=== PATIENT | male | born 1940 | race Caucasian/White ===

== ENCOUNTER 2017-07-23 12:08 | Emergency (ER) | payer MEDICARE, BC, OTHER ==
[~2017-07-23] VITALS: Ht 162.6 cm; Wt 54.4 kg
[~2017-07-23 12:08] MED LIST: NAMZARIC PO
[2017-07-23] MEDS ORDERED: TRAMADOL HCL 50 MG TAB PO ONE (13:00)
--- NOTE | 2017-07-23 13:57 | Diagnostic Imaging Report ---
Left ankle x-ray - 3 views, foot x-ray, 3 views HISTORY: \S\pain \[id number] \S\1245 COMPARISON: None available. FINDINGS: Bones: No acute displaced fracture. Osseous alignment is within normal limits. Joints: The joint spaces are well-maintained. Calcaneal enteropathy. Soft tissues: The soft tissues appear unremarkable. IMPRESSION: No acute radiographic abnormality. Signed by: Dr. Irma Berger M.D. on 07/23/2017 1:54 PM
--- NOTE | 2017-07-23 13:57 | Diagnostic Imaging Report ---
Left ankle x-ray - 3 views, foot x-ray, 3 views HISTORY: \S\pain \[id number] \S\1245 COMPARISON: None available. FINDINGS: Bones: No acute displaced fracture. Osseous alignment is within normal limits. Joints: The joint spaces are well-maintained. Calcaneal enteropathy. Soft tissues: The soft tissues appear unremarkable. IMPRESSION: No acute radiographic abnormality. Signed by: Dr. Irma Berger M.D. on 07/23/2017 1:54 PM
== END 2017-07-23 14:10 | disposition home or self-care (01) ==
LOC: ER 12:08
DX: S93.612A Sprain of tarsal ligament of left foot, initial encounter (principal); S93.492A Sprain of other ligament of left ankle, initial encounter; X50.1XXA Overexertion from prolonged static or awkward postures, initial encounter; Y92.008 Other place in unspecified non-institutional (private) residence as the place of occurrence of the external cause
CPT/HCPCS: 99283

== ENCOUNTER 2019-02-13 17:24 | Inpatient (IN) | payer MEDICARE, BC, OTHER ==
[~2019-02-13] VITALS: Ht 162.6 cm; Wt 54.4 kg
--- OUTSIDE RECORDS SUMMARY | 2019-02-13 17:28 | XMS REPORT ---
Author Author [facility] Address Unknown Phone Unavailable Care Team Providers Care Ross Furnace Operator Name Role Phone Shilpa ADAMS Unavailable Unavailable Problems This patient has no known problems. Allergies, Adverse Reactions, Alerts This patient has no known allergies or adverse reactions. Medications This patient has no known medications. Results Test Description Test Time Test Comments Text Results Atomic Results Result Comments ANKLE 3+ VIEWS LEFT [place] [address] Patient Name: REILLY ARRIOLA JR MR #: [id number] : 1940 Age/Sex: 76/M Req #: [id number] Adm Physician: Ordered by: JARON ADAMS MD Report #: [id number] Location: ER Room/Bed: Procedure: [id number] DX/ANKLE 3+ VIEWS LEFT Exam Date: 07/23/17 Exam Time: 1245 REPORT STATUS: Signed Left ankle x-ray - 3 views, foot x-ray, 3 views HISTORY: COMPARISON: None available. FINDINGS: Bones: No acute displaced fracture. Osseous alignment is within normal limits. Joints: The joint spaces are well-maintained. Calcaneal enteropathy. Soft tissues: The soft tissues appear unremarkable. IMPRESSION: No acute radiographic abnormality. Signed by: Dr. Jenae Berger M.D. on 07/23/2017 1:54 PM Dictated By: JENAE BERGER MD 1354 Transcribed By: YOHANA on 07/23/17 1350 COPY TO: JARON ADAMS MD FOOT LEFT COMPLETE [place] [address] Patient Name: REILLY ARRIOLA JR MR #: [id number] : 1940 Age/Sex: 76/M Req #: [id number] Adm Physician: Ordered by: JARON ADAMS MD Report #: [id number] Location: ER Room/Bed: Procedure: [id number] DX/FOOT LEFT COMPLETE Exam Date: 07/23/17 Exam Time: 1245 REPORT STATUS: Signed Left ankle x-ray - 3 views, foot x-ray, 3 views HISTORY: COMPARISON: None available. FINDINGS: Bones: No acute displaced fracture. Osseous alignment is within normal limits. Joints: The joint spaces are well-maintained. Calcaneal enteropathy. Soft tissues: The soft tissues appear unremarkable. IMPRESSION: No acute radiographic abnormality. Signed by: Dr. Jenae Berger M.D. on 07/23/2017 1:54 PM Dictated By: JENAE BERGER MD 1352 Transcribed By: YOHANA on 07/23/17 1359 COPY TO: JARON ADAMS MD
[2019-02-13] MEDS ORDERED: NAMENDA10 MG PO (18:11)
[2019-02-13] MEDS ORDERED: ARICEPT5 MG PO (18:11)
[2019-02-13] MEDS ORDERED: SODIUM CHLORIDE 0.9% 1000ML 1,000 ML IV STA (18:20)
[2019-02-13] MEDS ORDERED: ACETAMINOPHEN 325 MG TAB PO ONE (18:30)
[2019-02-13] MEDS ORDERED: ACETAMINOPHEN 325 MG TAB ONE (19:00)
[2019-02-13 19:10] LABS: BASOPHILS % 0.2 % (0.0-1.0); HEMATOCRIT 45.1 % (38.2-49.6); HEMOGLOBIN 15.5 g/dL (14.0-18.0); LYMPHOCYTES # (AUTO) 0.4 (1.0-3.2); LYMPHOCYTES % 3.3 % (18.0-39.1); MEAN CORPUSCULAR HEMOGLOBIN 31.8 pg (28-32); MEAN CORPUSCULAR HGB CONC 34.4 g/dL (31-35); MEAN CORPUSCULAR VOLUME 92.6 fL (81-99); MONOCYTES % 8.5 % (4.4-11.3); NEUTROPHILS # (AUTO) 10.7 (2.1-6.9); NEUTROPHILS % 87.5 % (38.7-80.0); PLATELET COUNT 299 x10e3/uL (140-360); RED BLOOD COUNT 4.87 x10e6/uL (4.3-5.7); RED CELL DISTRIBUTION WIDTH 14.1 % (11.7-14.4)
[2019-02-13 19:14] LABS: BILIRUBIN,URINE SMALL (NEGATIVE); CLARITY,URINE SL CLOUDY (CLEAR); COLOR,URINE YELLOW (YELLOW); LEUKOCYTE ESTERASE ,URINE NEGATIVE (NEGATIVE); NITRITE,URINE NEGATIVE (NEGATIVE); PROTEIN,URINE DIPSTICK TRACE (NEGATIVE); URINE UROBILINOGEN 2 mg/dL (0.2 - 1)
[2019-02-13 19:16] LABS: KETONES,URINE 1+ (NEGATIVE)
[2019-02-13 19:17] LABS: INR 0.93; PARTIAL THROMBOPLASTIN TIME 26.4 seconds (23.8-35.5)
[2019-02-13 19:27] LABS: BACTERIA,URINE FEW /HPF; EPITHELIAL CELLS,URINE FEW /LPF; RBC,URINE 0-5 /HPF (0-5); WBC,URINE (MAN) 0-5 /HPF (0-5)
[2019-02-13 19:28] LABS: ALANINE AMINOTRANSFERASE 8 IU/L (0-55); ALBUMIN 3.8 g/dL (3.5-5.0); ALKALINE PHOSPHATASE 113 IU/L (40-150); ANION GAP 11.7 mmol/L (8-16); BLOOD UREA NITROGEN 17 mg/dL (7-26); BUN/CREATININE RATIO 20 (6-25); CALCIUM 9.4 mg/dL (8.4-10.2); CARBON DIOXIDE 27 mmol/L (22-29); CHLORIDE 102 mmol/L (98-107); CREATINE KINASE 39 IU/L (30-200); CREATININE, SERUM 0.86 mg/dL (0.72-1.25); EST GLOMERULAR FILTRATION RATE > 60 ML/MIN (60-); GLUCOSE 135 mg/dL (74-118); LIPASE 6 U/L (8-78); POTASSIUM 3.7 mmol/L (3.5-5.1); SODIUM 137 mmol/L (136-145)
[2019-02-13 19:30] LABS: STREPTOCOCCUS GRP A ANTIGEN NEGATIVE (NEGATIVE)
[2019-02-13 19:31] LABS: INFLUENZAE A&B ANTIGEN (RAPID) NEGATIVE (NEGATIVE)
[2019-02-13] MEDS ORDERED: CEFEPIME 2 GM/NS 0.9% 100 ML 100 ML IV SCH (19:45)
[2019-02-13] MEDS ORDERED: CEFEPIME 2 GM/NS 0.9% 100 ML 100 ML IV ONE (19:49)
[2019-02-13] MEDS ORDERED: SODIUM CHLORIDE 0.9% 50ML 50 ML ONE (20:24)
[2019-02-13] MEDS ORDERED: IOPAMIDOL 370 MG/ML 200 ML INFUS..BTL INJ ONE (20:25)
--- NOTE | 2019-02-13 20:49 | Diagnostic Imaging Report ---
EXAMINATION: CHEST SINGLE (NOT PORTABLE) INDICATION: ^FEVER COUGH CP ^[id number] ^[id number] COMPARISON: Chest radiograph 07/01/2014 FINDINGS: AP view TUBES and LINES: None. LUNGS: Lungs are well inflated. Reticular opacities in both lung bases. There is no evidence of pneumonia or pulmonary edema. PLEURA: No pleural effusion or pneumothorax. HEART AND MEDIASTINUM: Curvilinear opacity in the right paraspinal region may reflect a tortuous ascending aorta. The cardiac silhouette is within normal limits. BONES AND SOFT TISSUES: No acute osseous lesion. Soft tissues are unremarkable. UPPER ABDOMEN: No free air under the diaphragm. IMPRESSION: Bilateral lower lobes and reticular opacity may reflect atelectasis or atypical pneumonia. Indeterminate right paraspinal opacity may reflect a tortuous thoracic aorta. Consider lateral view for further evaluation. Signed by: Dr. Irma Berger M.D. on 02/13/2019 8:45 PM
--- NOTE | 2019-02-13 21:25 | Diagnostic Imaging Report ---
History: Neck swelling, stiffness and fever. Evaluate for possible abscess. Comparison studies: None Technique: Axial, coronal and sagittal images from the skull base to the thoracic inlet. Coronal and sagittal images reconstructed from the axial data. Dose modulation, iterative reconstruction, and/or weight based adjustment of the mA/kV was utilized to reduce the radiation dose to as low as reasonably achievable. Intravenous contrast: 100 cc of Isovue 370. Findings: Soft tissues: No abnormalities. Lymph nodes: No radiographically significant adenopathy. Vessels: Arteries and veins are patent. Glands (thyroid, parotid and submandibular): 2 mm hypodense nodule in right lobe of thyroid gland. Otherwise, normal in size and symmetric. No masses. Orbits: No abnormalities. Paranasal sinuses: Complete opacification of bilateral maxillary sinuses with intrinsic curvilinear enhancement, near complete opacification of bilateral frontal sinuses and moderate mucosal thickening in bilateral anterior ethmoid sinuses. Temporal bones: No abnormalities. Skull base and facial bones: Intact. Cervical spine: Moderate degenerative changes in the anterior atlantodental joint. Multilevel moderate to severe degenerative disc disease particularly from C3 to C7. C2-C3: Posterior disc osteophyte complex results in mild canal stenosis. C3-C4: Moderate right and mild left foraminal stenosis due to uncovertebral arthrosis. C4-C5: Moderate bilateral foraminal stenosis due to uncovertebral arthrosis. C5-C6: Moderate right and mild left foraminal stenosis due to uncovertebral arthrosis. C6-C7: Posterior disc osteophyte complex results in mild canal stenosis. Moderate bilateral foraminal stenosis due to uncovertebral arthrosis. Incidental finding: Multiple missing teeth, multifocal dental caries and endodontal disease, the activity of which is to be determined clinically. IMPRESSION: 1. No acute soft tissue abscess or enhancing mass. 2. Moderate to severe paranasal sinus inflammatory changes as detailed above. 3. Moderate cervical spondylosis as above, particularly results in mild canal stenosis at C2-C3 and C6-C7. Multilevel foraminal stenosis, particularly moderate right and mild left at C3-C4, C5-C6, moderate bilateral at C4-C5 and C6-C7. Signed by: Dr. Jessica Murphy M.D. on 02/13/2019 9:21 PM
[2019-02-13] MEDS ORDERED: ONDANSETRON HCL INJ 2MG/ML 2ML 2 MG/ML VIAL IV PRN (22:00)
[2019-02-13] MEDS ORDERED: SODIUM CHLORIDE FLUSH 10 ML SYR INJ PRN (22:00)
[2019-02-13] MEDS: SODIUM CHLORIDE 0.9% 1000ML 1,000 ML IV SCH (22:54)
[2019-02-13 23:30] VITALS: BP 108/61
[2019-02-13] MEDS: AZITHROMYCIN 500MG/SOD CHL 0.9% 250ML BAG IV SCH (23:30)
[2019-02-14] VITALS (9 sets, daily range): BP systolic 95–116; BP diastolic 56–61
[2019-02-14 05:20] LABS: BASOPHILS % 0.2 % (0.0-1.0); EOSINOPHILS % 0.1 % (0.0-6.0); HEMOGLOBIN 13.3 g/dL (14.0-18.0); LYMPHOCYTES # (AUTO) 1.4 (1.0-3.2); LYMPHOCYTES % 11.6 % (18.0-39.1); MEAN CORPUSCULAR HEMOGLOBIN 31.6 pg (28-32); MEAN CORPUSCULAR HGB CONC 34.1 g/dL (31-35); MEAN CORPUSCULAR VOLUME 92.6 fL (81-99); MONOCYTES # (AUTO) 1.7 (0.2-0.8); MONOCYTES % 14.1 % (4.4-11.3); NEUTROPHILS # (AUTO) 9.1 (2.1-6.9); NEUTROPHILS % 73.6 % (38.7-80.0); PLATELET COUNT 232 x10e3/uL (140-360); RED BLOOD COUNT 4.21 x10e6/uL (4.3-5.7); RED CELL DISTRIBUTION WIDTH 14.4 % (11.7-14.4)
[2019-02-14] MEDS: SODIUM CHLORIDE 0.9% 1000ML 1,000 ML IV SCH ×3 (05:46→23:52)
[2019-02-14] MEDS: CEFEPIME 2 GM/NS 0.9% 100 ML 100 ML IV SCH ×3 (05:46→22:03)
[2019-02-14 05:53] LABS: CREATINE KINASE MB 0.9 ng/mL (0-5.0)
[2019-02-14 06:12] LABS: ALANINE AMINOTRANSFERASE 7 IU/L (0-55); ALBUMIN 2.9 g/dL (3.5-5.0); ALBUMIN/GLOBULIN RATIO 0.9 (0.8-2.0); ALKALINE PHOSPHATASE 89 IU/L (40-150); ANION GAP 11.4 mmol/L (8-16); BLOOD UREA NITROGEN 14 mg/dL (7-26); BUN/CREATININE RATIO 19 (6-25); CARBON DIOXIDE 20 mmol/L (22-29); CHLORIDE 110 mmol/L (98-107); CREATININE, SERUM 0.73 mg/dL (0.72-1.25); EST GLOMERULAR FILTRATION RATE > 60 ML/MIN (60-); GLUCOSE 108 mg/dL (74-118); POTASSIUM 3.4 mmol/L (3.5-5.1); SODIUM 138 mmol/L (136-145)
[2019-02-14 14:38] LABS: CREATINE KINASE MB 0.9 ng/mL (0-5.0)
--- NOTE | 2019-02-14 17:46 | Diagnostic Imaging Report ---
History: Neck pain. Comparison studies: None Technique: Sagittal T1, T2 and IR, axial T2 and axial gradient echo Intravenous contrast: None Findings: Motion artifact limits evaluation previous evaluation. Alignment: Normal lordosis. No scoliosis. Cervicomedullary junction: No abnormalities. Patent foramen magnum. Soft tissues: No T2 hyperintense inflammatory changes. Spinal cord: Normal in size and signal from the foramen magnum through T4 Vertebrae: Normal in height and signal intensity. No fractures, infection or neoplasm. Degenerative changes: C2-C3: Disc degeneration with loss of T2 signal. Small central disc osteophyte complex and left uncinate process hypertrophy resulting in mild left foraminal narrowing without significant canal stenosis. C3-C4: Disc degeneration with loss of T2 signal and obliterated intervertebral space. Bilateral uncinate process hypertrophy and facet hypertrophy results in no significant stenosis and moderate bilateral foraminal narrowing C4-C5: Disc degeneration with loss of T2 signal and obliterated intervertebral space. Diffuse disc osteophyte complex, uncinate process hypertrophy results in no significant canal stenosis, moderate right and severe left foraminal narrowing C5-C6: Disc degeneration with loss of T2 signal and obliterated intervertebral space. Diffuse disc osteophyte complex bilateral uncinate process and facet hypertrophy results in mild canal stenosis, severe right and moderate left foraminal. C6-C7: Disc degeneration with loss of T2 signal and obliterated intervertebral space. Diffuse disc osteophyte complex bilateral and ligamentum flavum thickening results in mild canal stenosis and moderate bilateral foraminal narrowing. C7-T1: Disc degeneration with loss of T2 signal. Patent canal and foramina IMPRESSION: 1. Multilevel degenerative foraminal narrowing, moderate bilateral at C3-4 and C6-7; moderate right and severe left at C4-5 ; severe right and moderate left at C5-6. 2. Other degenerative changes without significant (moderate or severe) canal stenosis. Signed by: DR Dashawn Rodríguez M.D. on 02/14/2019 5:42 PM
--- NOTE | 2019-02-14 20:15 | NUR ---
patient is in bed, severely forgetful, no distress noted at this time, and another fam member on bed side. vitals checked, will continue to monitor.
--- NOTE | 2019-02-14 22:38 | NUR ---
patient just pulled off the IV line to left AC, a new IV inserted to left Upper arm size 20 g.
[2019-02-14] MEDS: AZITHROMYCIN 500MG/SOD CHL 0.9% 250ML BAG IV SCH (22:47)
[2019-02-15] VITALS (7 sets, daily range): BP systolic 92–126; BP diastolic 55–80
[2019-02-15] MEDS: CEFEPIME 2 GM/NS 0.9% 100 ML 100 ML IV SCH ×3 (05:41→22:51)
[2019-02-15] MEDS: ACETAMINOPHEN 325 MG TAB PO PRN ×2 (06:11→22:52)
--- NOTE | 2019-02-15 07:00 | NUR ---
Pt received resting in bed with at bedside. Alert and oriented x2 but forgetful. Oriented to staff and surroundings. Encouraged to press call tavares if help needed. Emotional support given. Pt with left upper arm saline lock receiving IV fluid as ordered. Bed alarm on. Will monitor
[2019-02-15] MEDS: SODIUM CHLORIDE 0.9% 1000ML 1,000 ML IV SCH ×3 (08:38→22:52)
[2019-02-15] MEDS ORDERED: POTASSIUM CHLORIDE 10MEQ EA PO ONE (11:00)
--- NOTE | 2019-02-15 11:06 | NUR ---
Received order for LTAC eval and transfer on 02/16/19. Spoke to pt and at bedside. Dr. Gillespie spoke to pt and today regarding plan. They gave choice for [facility]. Signed choice letter placed in front of chart. Copy to pt's . Nery Garibay with [facility] was notified of referral. Referral was faxed to [phone].
--- NOTE | 2019-02-15 12:56 | Consultation ---
DATE OF CONSULTATION: 02/15/2019 REASON FOR CONSULTATION: Neck and chest pain. HISTORY OF PRESENT ILLNESS: The patient is a 78-year-old man with dementia, who was brought by his to the emergency room because he was having chest pain and she feared cardiac issues. Cardiac problems have been ruled out and apparently he has been diagnosed with pneumonia. He states that he has mild chronic neck pain. The pain does not radiate down the arms. He is able to ambulate without any difficulty and does not use a walker at home. PHYSICAL EXAMINATION: On exam, the patient is awake and alert, and follows commands readily. His speech is fluent. He has urrp-sm-iwksload dementia. Cranial nerves are intact. Motor strength is full and symmetric in the arms and legs, except that lifting the arms above the shoulder is limited due to intrinsic shoulder restriction and mild pain. Deep tendon reflexes are symmetric. Plantar responses are flexor. He is able to stand and walk on his own. IMAGING STUDIES: MRI of the cervical spine was reviewed. There is multilevel cervical disk degeneration consistent with his age at C3-4, C4-5, C5-6, and C6-7. There is bilateral foraminal stenosis at C5-6 and C6-7, but there is no cord compression. IMPRESSION: Chronic degenerative changes of the cervical spine with multilevel foraminal stenosis without cervical radiculopathy or myelopathy. He does not require surgical treatment. I will sign off. Fady Negrete MD PP/MARGARITO /[id number]
--- NOTE | 2019-02-15 19:07 | Consultation ---
DATE OF CONSULTATION: 02/15/2019 Hospital Consultation HISTORY OF PRESENT ILLNESS: I was kindly asked to see this 78-year-old man for evaluation of sinusitis. The patient has a history of sore throat, fever, and body aches of 2 days duration. Subsequent workup with CT scan showed pansinusitis. He also has had pain in his jaw and difficulty opening his mouth due to dental abnormalities. PAST MEDICAL HISTORY: Reviewed in detail in the chart. PAST SURGICAL HISTORY: Reviewed in detail in the chart. PHYSICAL EXAMINATION: On examination, there is excess cerumen in external auditory canals bilaterally with no acute pathology noted. The pinna and postauricular area are normal bilaterally. He has a moderate nasal septal deviation. Examination is limited due to poor patient cooperation. He has difficulty opening his mouth due to the degree of dental pain and is nonspecific about the etiology of the dental pain. On bedside fiberoptic diagnostic rhinoscopy, examination is limited due to poor patient cooperation, but no active infection was identified on examination. The patient and his were asked. ASSESSMENT: 1. Chronic pansinusitis with complete opacification of the maxillary sinuses and near complete opacification of the frontal sinuses with thickening within the ethmoid air cells. 2. No evidence of abscess formation of dental etiology. PLAN: 1. Afrin nasal spray 2 puffs each side of nose b.i.d. for 3 days. 2. [place] nasal spray 2 puffs each side of nose q.4 hours while awake. MD CLARE Alcantar/MARGARITO /[id number]
[2019-02-15] MEDS: OXYMETAZOLINE HCL 0.05% NAS 1 SPRAY BTL SCH (20:57)
--- NOTE | 2019-02-15 22:32 | NUR ---
called answering service of Dr Trace Gillespie, patient just had an episode of combative, trying to get an order, awaiting for a call back.
[2019-02-15] MEDS ORDERED: LORAZEPAM INJ 2 MG/ML VIAL IV PRN (22:45)
[2019-02-15] MEDS: SALINE 0.65% NAS SOLN 1 SPRAY BTL SCH (22:52)
[2019-02-15] MEDS: AZITHROMYCIN 500MG/SOD CHL 0.9% 250ML BAG IV SCH (23:33)
[2019-02-16 00:04] VITALS: BP 133/76
--- NOTE | 2019-02-16 02:16 | NUR ---
patient accidentally pulled off his IV line while trying to use the bathroom. new IV line inserted to left upper arm size 20 g.
[2019-02-16 03:54] VITALS: BP 116/76
[2019-02-16] MEDS: CEFEPIME 2 GM/NS 0.9% 100 ML 100 ML IV SCH ×2 (05:32→12:57)
[2019-02-16] MEDS: SODIUM CHLORIDE 0.9% 1000ML 1,000 ML IV SCH ×2 (05:58→12:57)
[2019-02-16] MEDS: SALINE 0.65% NAS SOLN 1 SPRAY BTL SCH ×3 (07:08→12:58)
[2019-02-16 08:00] VITALS: BP 117/72
--- NOTE | 2019-02-16 08:26 | NUR ---
Patient confused and keeps pulling off EKG leads and has been pulling out IV lines throughout the night, patient removed IV again , and had blood on gown, but states "he doesnt know he pulled IV out", patient redirected and verbalized understanding, at bedside. Will continue to monitor
--- NOTE | 2019-02-16 08:37 | NUR ---
Spoke to Nery Garibay with [facility] this morning. She is aware of referral. Informed her Dr. Gillespie plans to transfer today.
[2019-02-16] MEDS: OXYMETAZOLINE HCL 0.05% NAS 1 SPRAY BTL SCH (08:40)
[2019-02-16] MEDS ORDERED: HALOPERIDOL LACTATE 5 MG/ML VIAL IM PRN (08:45)
[2019-02-16] MEDS ORDERED: MEMANTINE 10 MG TAB PO SCH (09:00)
[2019-02-16 09:03] LABS: BASOPHILS % 0.5 % (0.0-1.0); EOSINOPHILS # (AUTO) 0.3 (0.0-0.4); EOSINOPHILS % 3.8 % (0.0-6.0); HEMATOCRIT 36.2 % (38.2-49.6); HEMOGLOBIN 12.2 g/dL (14.0-18.0); LYMPHOCYTES # (AUTO) 1.2 (1.0-3.2); LYMPHOCYTES % 18.3 % (18.0-39.1); MEAN CORPUSCULAR HEMOGLOBIN 31.3 pg (28-32); MEAN CORPUSCULAR HGB CONC 33.7 g/dL (31-35); MEAN CORPUSCULAR VOLUME 92.8 fL (81-99); MONOCYTES # (AUTO) 0.8 (0.2-0.8); MONOCYTES % 11.8 % (4.4-11.3); NEUTROPHILS # (AUTO) 4.3 (2.1-6.9); NEUTROPHILS % 65.4 % (38.7-80.0); PLATELET COUNT 232 x10e3/uL (140-360); RED CELL DISTRIBUTION WIDTH 14.1 % (11.7-14.4)
[2019-02-16 09:16] LABS: ANION GAP 13.3 mmol/L (8-16); BLOOD UREA NITROGEN 9 mg/dL (7-26); BUN/CREATININE RATIO 13 (6-25); CARBON DIOXIDE 20 mmol/L (22-29); CHLORIDE 107 mmol/L (98-107); CREATININE, SERUM 0.67 mg/dL (0.72-1.25); EST GLOMERULAR FILTRATION RATE > 60 ML/MIN (60-); GLUCOSE 89 mg/dL (74-118); POTASSIUM 3.3 mmol/L (3.5-5.1); SODIUM 137 mmol/L (136-145)
--- NOTE | 2019-02-16 12:05 | Diagnostic Imaging Report ---
EXAMINATION: CHEST XRAY LINE PLACEMENT INDICATION: Line placement COMPARISON: 02/13/2019 chest radiograph FINDINGS: LINES/TUBES:Interval placement of right PICC line terminating at the superior cavoatrial junction. LUNGS:The lungs are moderately inflated. No focal consolidation or pulmonary edema. Mild bibasilar subsegmental atelectasis. PLEURA:No pleural effusion or pneumothorax. MEDIASTINUM:The cardiomediastinal silhouette appears unchanged in size and shape. BONES/SOFT TISSUES:No acute osseous injury. ABDOMEN:No free air under the diaphragm. IMPRESSION: Right PICC line terminates at the superior cavoatrial junction. Mild bibasilar subsegmental atelectasis. No focal pneumonia or pulmonary edema. Signed by: Ramez Muller MD on 02/16/2019 12:01 PM
[2019-02-16 13:00] VITALS: BP 119/65
--- NOTE | 2019-02-16 13:12 | NUR ---
REC'D MOT FROM [facility] TERRELL [facility] RO[address] CALL REPORT TO [phone] Trace RASMUSSEN [facility] [employer] [employer] [facility] ALYSA AVENDANO [facility] AMBULANCE CHOICE LETTER SIGNED BY FELIPE KOROMA AT BEDSIDE (PT CONFUSED) PLAN TRANSFER TODAY NURSE BRYAN NOTIFIED OF NUMBER TO CALL REPORT SHE IS CALLING DR Trace RASMUSSEN FOR DC ORDER
[2019-02-16] MEDS ORDERED: POTASSIUM CHLORIDE 20 MEQ TAB CR PO ONE (14:00)
[2019-02-16] MEDS ORDERED: DONEPEZIL HCL 5 MG TAB PO SCH (21:00)
== END 2019-02-16 16:10 | DRG 871 ==
LOC: ER 17:24 → ERHOLD 22:01 → IMCU 23:37
PROC: 02HV33Z Insertion of Infusion Device into Superior Vena Cava, Percutaneous Approach (ICD-10-PCS; principal; 2019-02-13)
DX: A41.9 Sepsis, unspecified organism (principal); J69.0 Pneumonitis due to inhalation of food and vomit; J32.4 Chronic pansinusitis; F03.90 Unspecified dementia, unspecified severity, without behavioral disturbance, psychotic disturbance, mood disturbance, and anxiety; M50.321 Other cervical disc degeneration at C4-C5 level; M48.02 Spinal stenosis, cervical region; M50.323 Other cervical disc degeneration at C6-C7 level; M50.31 Other cervical disc degeneration, high cervical region
CPT/HCPCS: 36415; 36569; 70491; 71045; 72141; 80048; 80053; 81001; 82550; 82553; 83518; 83605; 83690; 83735; 83880; 84484; 85025; 85610; 85730; 87040; 87070; 87086; 87400; 93005; 96360; 96361; 99284; J0456; J2060; J7030; Q9967

== ENCOUNTER 2019-03-13 16:13 | Observation (INO) | payer MEDICARE, BC, OTHER ==
[~2019-03-13] VITALS: Ht 162.6 cm; Wt 52.2 kg
[~2019-03-13 16:13] MED LIST changes: +ARICEPT5 MG PO; +NAMENDA10 MG PO
[2019-03-13 16:51] LABS: BASOPHILS % 0.2 % (0.0-1.0); EOSINOPHILS % 0.3 % (0.0-6.0); HEMATOCRIT 46.8 % (38.2-49.6); HEMOGLOBIN 15.3 g/dL (14.0-18.0); LYMPHOCYTES # (AUTO) 1.6 (1.0-3.2); LYMPHOCYTES % 15.7 % (18.0-39.1); MEAN CORPUSCULAR HEMOGLOBIN 30.8 pg (28-32); MEAN CORPUSCULAR HGB CONC 32.7 g/dL (31-35); MEAN CORPUSCULAR VOLUME 94.2 fL (81-99); MONOCYTES # (AUTO) 0.9 (0.2-0.8); NEUTROPHILS # (AUTO) 7.6 (2.1-6.9); NEUTROPHILS % 74.5 % (38.7-80.0); PLATELET COUNT 250 x10e3/uL (140-360); RED BLOOD COUNT 4.97 x10e6/uL (4.3-5.7); RED CELL DISTRIBUTION WIDTH 13.8 % (11.7-14.4)
[2019-03-13 16:58] LABS: INR 0.87; PROTHROMBIN TIME 12.3 seconds (11.9-14.5)
[2019-03-13 16:59] LABS: PARTIAL THROMBOPLASTIN TIME 26.3 seconds (23.8-35.5)
--- NOTE | 2019-03-13 17:07 | Diagnostic Imaging Report ---
EXAMINATION: CHEST 2 VIEWS INDICATION: Weakness COMPARISON: Chest radiograph 02/16/2019 FINDINGS: LINES/TUBES:Interval removal of previously seen right PICC line. LUNGS:The lungs are well-inflated. No focal consolidation or pulmonary edema. PLEURA:No pleural effusion or pneumothorax. MEDIASTINUM:The cardiomediastinal silhouette appears normal in size and shape. BONES/SOFT TISSUES:No acute osseous injury. ABDOMEN:No free air under the diaphragm. IMPRESSION: No focal pneumonia or pulmonary edema. Signed by: Ramez Muller MD on 03/13/2019 5:04 PM
[2019-03-13 17:08] LABS: ALANINE AMINOTRANSFERASE 66 IU/L (0-55); ALBUMIN 3.1 g/dL (3.5-5.0); ALBUMIN/GLOBULIN RATIO 0.7 (0.8-2.0); ALKALINE PHOSPHATASE 136 IU/L (40-150); ANION GAP 17.2 mmol/L (8-16); BLOOD UREA NITROGEN 18 mg/dL (7-26); BUN/CREATININE RATIO 22 (6-25); CALCIUM 8.9 mg/dL (8.4-10.2); CARBON DIOXIDE 22 mmol/L (22-29); CHLORIDE 102 mmol/L (98-107); CREATINE KINASE 47 IU/L (30-200); CREATININE, SERUM 0.83 mg/dL (0.72-1.25); EST GLOMERULAR FILTRATION RATE > 60 ML/MIN (60-); GLUCOSE 104 mg/dL (74-118); POTASSIUM 4.2 mmol/L (3.5-5.1); SODIUM 137 mmol/L (136-145)
[2019-03-13] MEDS ORDERED: SODIUM CHLORIDE 0.9% 1000ML 1,000 ML IV STA (17:19)
[2019-03-13] MEDS ORDERED: SODIUM CHLORIDE 0.9% 1000ML 1,000 ML ONE (17:26)
[2019-03-13] MEDS ORDERED: ONDANSETRON HCL INJ 2MG/ML 2ML 2 MG/ML VIAL IV PRN (18:00)
--- NOTE | 2019-03-13 18:00 | NUR ---
PATIENT TO ROOM 7
--- NOTE | 2019-03-13 18:17 | NUR ---
2nd LACTIC ACID DRAWN
--- NOTE | 2019-03-13 18:41 | NUR ---
UNABLE TO FIND URINE. STATES SHE LEFT IT ON THE BATHROOM SINK. RE OBTAINED A URINE SAMPLE AND SENT TO LAB
[2019-03-13 18:46] LABS: BILIRUBIN,URINE NEGATIVE (NEGATIVE); CLARITY,URINE SL CLOUDY (CLEAR); COLOR,URINE YELLOW (YELLOW); KETONES,URINE TRACE (NEGATIVE); LEUKOCYTE ESTERASE ,URINE NEGATIVE (NEGATIVE); NITRITE,URINE NEGATIVE (NEGATIVE); PROTEIN,URINE DIPSTICK NEGATIVE (NEGATIVE); URINE UROBILINOGEN 1 mg/dL (0.2 - 1)
--- NOTE | 2019-03-13 18:47 | NUR ---
MULTIPLE EKGS TO WITH RHYTHM STRIPS AND OLD EKG TO
[2019-03-13 18:57] LABS: MAGNESIUM 2.2 MG/DL (1.3-2.1); PHOSPHORUS 1.4 MG/DL (2.3-4.7)
[2019-03-13 18:58] LABS: MUCUS,URINE FEW (RARE)
[2019-03-13] MEDS: SODIUM CHLORIDE 0.9% 1000ML 1,000 ML IV SCH (19:14)
[2019-03-13 19:49] VITALS: BP 132/62
--- NOTE | 2019-03-13 19:50 | NUR ---
Pt admitted to room 285 via stretcher from home. Pt alert to name, confused to time and situation, agitated when being touched or asked too many questions. able to answer questions. Pt diagnosis: weakness, able to ambulate to bathroom with standby assist. Urine yellow, clear with normal odor. Last BM 03/13, brown, soft. Skim warm, dry, and intact. Oriented to room and bathroom. Call light within reach. Bed low and locked. Bed alarm on. at bedside. Will continue to monitor.
[2019-03-13 21:36] VITALS: BP 118/61
[2019-03-13 21:38] VITALS: BP 118/61
[2019-03-13] MEDS ORDERED: PNEUMOCOCCAL VACCINE POLYVALENT 23 MCG/0.5 ML VIAL IM SCH (21:47)
[2019-03-13] MEDS ORDERED: INFLUENZA VIRUS VAC SPLIT INJ 0.5 ML SYR IM SCH (21:47)
[2019-03-14] VITALS (8 sets, daily range): BP systolic 99–132; BP diastolic 54–80
[2019-03-14 02:27] LABS: CREATINE KINASE 40 IU/L (30-200)
[2019-03-14 06:00] LABS: BASOPHILS % 0.1 % (0.0-1.0); EOSINOPHILS % 0.1 % (0.0-6.0); HEMATOCRIT 39.6 % (38.2-49.6); HEMOGLOBIN 13.3 g/dL (14.0-18.0); LYMPHOCYTES # (AUTO) 1.5 (1.0-3.2); MEAN CORPUSCULAR HEMOGLOBIN 31.1 pg (28-32); MEAN CORPUSCULAR HGB CONC 33.6 g/dL (31-35); MEAN CORPUSCULAR VOLUME 92.5 fL (81-99); MONOCYTES # (AUTO) 1.2 (0.2-0.8); MONOCYTES % 13.1 % (4.4-11.3); NEUTROPHILS # (AUTO) 6.4 (2.1-6.9); NEUTROPHILS % 70.4 % (38.7-80.0); PLATELET COUNT 204 x10e3/uL (140-360); RED BLOOD COUNT 4.28 x10e6/uL (4.3-5.7); RED CELL DISTRIBUTION WIDTH 13.9 % (11.7-14.4)
[2019-03-14 06:32] LABS: INR 1.03
[2019-03-14 06:33] LABS: PARTIAL THROMBOPLASTIN TIME 32.4 seconds (23.8-35.5)
[2019-03-14 06:34] LABS: ANION GAP 13.2 mmol/L (8-16); BLOOD UREA NITROGEN 13 mg/dL (7-26); BUN/CREATININE RATIO 20 (6-25); CALCIUM 7.7 mg/dL (8.4-10.2); CARBON DIOXIDE 22 mmol/L (22-29); CHLORIDE 107 mmol/L (98-107); CREATININE, SERUM 0.66 mg/dL (0.72-1.25); EST GLOMERULAR FILTRATION RATE > 60 ML/MIN (60-); GLUCOSE 102 mg/dL (74-118); POTASSIUM 3.2 mmol/L (3.5-5.1); SODIUM 139 mmol/L (136-145)
--- NOTE | 2019-03-14 07:02 | NUR ---
change of report received and walking rounds completed with material handler 1st shift RN. pt resting comfortably, easily aroused. no signs of distress. will continue to monitor.
--- NOTE | 2019-03-14 07:24 | Diagnostic Imaging Report ---
Examination: Single AP view of the chest. COMPARISON: Chest 2 views 03/13/2019 INDICATION: Pain IMPRESSION: 1. Lines and Tubes: None 2. Lungs are grossly clear. No consolidation or effusion. 3. Cardiomediastinal silhouette is normal. Pulmonary vasculature is normal. 4. No acute bony abnormalities. Signed by: Dr. Pieter Sanches M.D. on 03/14/2019 7:21 AM
[2019-03-14 10:38] LABS: CREATINE KINASE 42 IU/L (30-200)
[2019-03-14] MEDS: POTASSIUM CHLORIDE 20 MEQ TAB CR PO ONE ×2 (13:08→13:20)
--- NOTE | 2019-03-14 13:17 | NUR ---
SPOKE WITH DR RASMUSSEN, PT JUST GOT [facility] AND WANTS SNF PLACEMENT. SPOKE WITH PT AND WHOM CALLED DAUGHTER AND [facility]OOSE [facility]. FILED CHOICE IN CHART PRINTED PACKET, [facility] AND [facility], FAXED AND WILL FOLLOW UP TOMORROW WITH FACILITY.
--- NOTE | 2019-03-14 19:00 | NUR ---
Patient visited in room during nursing rounds. Patient alert and oriented x2 (i.e. pt tends to forget recent memory). at bedside. Bed alarm active. Pt to be re-started on IVF as ordered in EMAR. No distress or discomfort noted. Call tavares within reach.
[2019-03-14 19:20] LABS: CREATINE KINASE 41 IU/L (30-200)
--- NOTE | 2019-03-14 20:48 | NUR ---
IVF (NS at 100ml/hr) re-started. Pt resting comfortably.
--- NOTE | 2019-03-14 21:00 | NUR ---
Patient and patient's (Ania) informed about the Flu Vaccine and Pneumonia Vaccine. Patient refused to receive both vaccines at this time. Patient states he prefers to rest.
[2019-03-15] VITALS (7 sets, daily range): BP systolic 97–128; BP diastolic 51–77
[2019-03-15] MEDS: SODIUM CHLORIDE 0.9% 1000ML 1,000 ML IV SCH (00:17)
[2019-03-15] MEDS ORDERED: SODIUM CHLORIDE 0.9% 1000ML 1,000 ML ONE (00:19)
[2019-03-15 05:52] LABS: ANION GAP 13.6 mmol/L (8-16); BLOOD UREA NITROGEN 9 mg/dL (7-26); BUN/CREATININE RATIO 13 (6-25); CALCIUM 8.2 mg/dL (8.4-10.2); CARBON DIOXIDE 21 mmol/L (22-29); CHLORIDE 106 mmol/L (98-107); CREATININE, SERUM 0.69 mg/dL (0.72-1.25); EST GLOMERULAR FILTRATION RATE > 60 ML/MIN (60-); GLUCOSE 97 mg/dL (74-118); POTASSIUM 3.6 mmol/L (3.5-5.1); SODIUM 137 mmol/L (136-145)
--- NOTE | 2019-03-15 07:30 | NUR ---
Pt received in bed. AOx2-3 and able to verbalize needs. Denies any pain at this time. at the bedside.
--- NOTE | 2019-03-15 11:30 | NUR ---
Dr. Gillespie here to see pt and states pt can discharge to [facility] if he gets accepted. Family is at the bedside and is aware of possible transfer.
--- NOTE | 2019-03-15 15:33 | NUR ---
Nutrition Screen Note RD Recommendation for Physician: -Continue current diet per MD. -Consider ONS, if appetite remains poor. Plan of Care: RD following, monitoring for tolerance and adequacy Nutrition reason for involvement: MST-4 Primary Diagnose(s): Weakness PMH: no history recorded within EMR yet Ht: 64 in Wt:115 lb BMI: 19.7 kg/m2 IBW: [address] Assessment: 03/15: 78 YOM admitted for weakness. Pt was silent during visit, was able to speak with the . She reports that he had a poor appetite for about one week and that she was not sure if he had any weight loss. Pt was here in Jan and was 120 lbs suggesting a 5 lb weight loss in about 2 months (4.1% weight loss). She denied N/V/C/D/chewing or swallowing issues for him as well. Possible d/c to [facility] later today. Chart reviewed. Labs and meds reviewed. Will continue to monitor. Current Diet: cardiac Malnutrition Evaluation 03/15 The patient does not meet criteria for a specified degree of malnutrition at this time. Will re-evaluate at follow-up as appropriate. Energy intake: <50% of estimated energy requirements for >5 days Weight loss: -does not meet criteria Fat loss: Mild Muscle loss: Mild Diet Education Needs Assessment: Diet education not indicated. Diet Adequacy: (not Meeting calorie needs, not Meeting protein needs-meal percentage recorded within FS was 25% Nutrition Care Level: mod-not meeting needs yet Signed: Jayshree Jeter RD, LD
[2019-03-15] MEDS: MEMANTINE 10 MG TAB PO SCH (17:08)
--- NOTE | 2019-03-15 19:00 | NUR ---
Patient visited in room during nursing rounds. Patient alert and oriented x2 (i.e. pt tends to forget recent memory). Bed alarm active. Pt ambulates with assistance prn. No distress or discomfort noted. Call tavares within reach. Will monitor pt closely.
[2019-03-15] MEDS ORDERED: DONEPEZIL HCL 5 MG TAB PO SCH (21:00)
[2019-03-16] VITALS: BP 101/59
[2019-03-16 04:00] VITALS: BP 110/57
--- NOTE | 2019-03-16 07:00 | NUR ---
BEDSIDE SHIFT REPORT RECEIVED FROM THE GARBAGE COLLECTOR SUPERVISOR RN. EDUCATED PT ABOUT FALL PRECAUTIONS. CALL LIGHT WITH IN EASY REACH. INSTRUCTED PT TO USE CALL LIGHT FOR ALL THE NEEDS. PT VERBALIZED UNDERSTANDING. BED ALARM IS ON. BED IS LOW AND LOCKED. SIDE RAILS X2. PT DENIES NEEDS AT THIS TIME.
[2019-03-16 08:00] VITALS: BP 97/64
[2019-03-16 08:22] VITALS: BP 97/64
[2019-03-16] MEDS: MEMANTINE 10 MG TAB PO SCH ×2 (08:57→16:22)
--- NOTE | 2019-03-16 09:03 | NUR ---
3 DAY OBS PT AWAITING AUTH FROM SNF / [facility].
[2019-03-16 11:45] VITALS: BP 99/59
--- NOTE | 2019-03-16 13:20 | NUR ---
RESIDENTIAL FACILITY DISCHARGE INFORMATION PATIENT HAS BEEN ACCEPTED TO: NAME: [facility] ADDRESS: [id number] MD: VALERY ROOM:611 NURSE CALL REPORT TO: [phone] IMM SIGNED AND OBTAINED (if applicable): YES THE FOLLOWING DOCUMENTS MUST ACCOMPANY PATIENT FOR TRANSFER: COPIED CHART: PACKET
--- NOTE | 2019-03-16 14:30 | NUR ---
PT REFUSED FLU VACCINE AND PNEUMONIA VACCINE.
--- NOTE | 2019-03-16 14:55 | NUR ---
[facility] TO D/C PT PER DR. RASMUSSEN.
--- NOTE | 2019-03-16 15:00 | NUR ---
PAGED MEDICAL RESORT AND REPORT GIVEN TO VALDO GUZMÁN. PT IS TRANSFERRING TO RM 611.
[2019-03-16 15:35] VITALS: BP 93/55
--- NOTE | 2019-03-16 17:43 | NUR ---
PT TRANSFERRED TO [facility] RM [address] VIA [facility]. TELE AND IV REMOVED. TIP INTACT. DRESSING APPLIED. FAMILY WAS PRESENT AT BEDSIDE. PT DENIED FURTHER NEEDS.
--- NOTE | 2019-04-30 00:15 | Discharge Summary ---
CHIEF COMPLAINT: Generalized weakness. The patient does have history of dementia. FINAL DIAGNOSES: Dementia, dehydration, diabetes type 2. DISPOSITION: SNF placement. HOSPITAL COURSE: A 78-year-old male with dementia, brought to the ER with generalized weakness. No fever or chills. No nausea, vomiting, or diarrhea. He was recently discharged from [facility] with a 2-week hospitalization for pneumonia and sepsis. He underwent evaluation in the emergency room. Studies were somewhat unrevealing. The patient admitted to the facility for treatment regarding dementia, recent hospitalization, generalized weakness. He will be admitted for observation. We will be addressing some PT and OT. We will be [facility] the [facility], requesting a SNF evaluation. The patient was placed on the Med-Surg floor. He was started on diabetic diet, was resting comfortably. He was on his routine insulin protocol. He was receiving his routine daily medications as well. He noted to be ambulatory as he was able to go to and from the bathroom. Laboratory studies were showing some hypokalemia issue, and the patient was continued to be watched further. Case Management was brought in to address transfer to SNF facility. He was still noted to be ambulatory without assistance. The patient stabilized, was in no acute distress and was able to be released in stable condition. He will be reporting to the [facility] for continuation of care and treatment. IMAGING: Chest x-ray finding shows no focal pneumonia or pulmonary edema. Repeat chest x-ray 1 day later used for comparison, findings shows that the lungs are grossly clear. No consolidation or effusion. Cardiomediastinal silhouette is normal. Pulmonary vasculature is normal. No acute bony abnormalities. Cultures, blood negative. LABORATORY DATA: Blood work on the patient was beginning with CBC showing initial panel to be normal. Followup CBC was normal. Influenza studies were negative. Urinalysis unremarkable. Chemistries, initial panel show stable electrolytes. Kidney function is stable. Glucose 104. Followup chemistry shows a drop in the potassium of 3.2. Three sets of cardiac enzymes were performed, all three sets were normal. Followup potassium was normal. Final glucose 97. As mentioned, the patient stabilized and will be transferred to [facility] for further continuation of treatment. His IVs were discontinued. At that location, the patient will continue on his diabetic diet. No equipments or supplies were necessary. No drain or [place] was needed. Activity level as directed by myself as I will continue to manage the patient's care at that location. The patient will be on donepezil, i.e., Aricept 10 mg p.o. at bedtime, Namenda 10 mg p.o. b.i.d. Staff will be contacting me in my office if there are any questions or concerns. The patient will continue on PT and OT for strengthening. Dictated by FEDE Walker MD GANESH Lambert/MARGARITO /[id number]
== END 2019-03-16 17:47 ==
LOC: ER 16:13 → ERHOLD 18:11 → MED/SURG3 20:00
DX: F03.90 Unspecified dementia, unspecified severity, without behavioral disturbance, psychotic disturbance, mood disturbance, and anxiety (principal); R53.1 Weakness; R53.81 Other malaise
CPT/HCPCS: 36415 ×2; 71045; 71046; 80048 ×2; 80053; 81001; 82550 ×2; 82553 ×2; 83605; 83735; 84100; 84484 ×2; 85025 ×2; 85610 ×2; 85730 ×2; 87040; 87400; 93005; 97116; 97161; 97530; 99284; G0378 ×4; J7030 ×2